=== PATIENT | female | born 1940 | race Caucasian/White ===

== ENCOUNTER 2024-07-21 20:11 | Inpatient (IN) | payer OTHER, MEDICAID ==
[~2024-07-21] VITALS: Ht 137.2 cm; Wt 87.3 kg
[2024-07-21 20:27] VITALS: BP_SYST 96; PULSE 72; RESP 16; TEMP 99.6; O2SAT 96
[2024-07-21 21:49] LABS: BASOPHILS # (AUTO) 0.1 K/uL (0.0-0.2); BASOPHILS % (AUTO) 0.5 % (0.0-2.0); EOSINOPHILS # (AUTO) 0.2 K/uL (0.0-0.4); EOSINOPHILS % (AUTO) 1.3 % (0.0-4.0); HEMATOCRIT 27.6 % (36-48); HEMOGLOBIN 8.8 g/dL (12.0-16.0); LYMPHOCYTES # (AUTO) 0.8 K/uL (1.0-5.5); LYMPHOCYTES % (AUTO) 4.4 % (20.5-51.5); MEAN CORPUSCULAR HEMOGLOBIN 28 pg (27-31); MEAN CORPUSCULAR HGB CONC 32 % (32-36); MEAN CORPUSCULAR VOLUME 88 fL (79.0-98.0); MONOCYTES # (AUTO) 1.2 K/uL (0.0-1.0); NEUTROPHILS # (AUTO) 15.3 K/uL (1.8-7.7); NEUTROPHILS % (AUTO) 86.8 % (40.0-70.0); PLATELET COUNT (AUTO) 201 K/uL (130-430); RED BLOOD CELL COUNT(AUTO) 3.15 MIL/uL (4.2-6.2); RED CELL DISTRIBUTION WIDTH 17.6 % (9.0-15.0); WHITE BLOOD COUNT (AUTO) 17.6 K/uL (4.8-10.8)
[2024-07-21 21:55] LABS: ALANINE AMINOTRANSFERASE 7 U/L (12-78); ALBUMIN 1.6 g/dL (3.4-4.8); ANION GAP 7 (5-15); ASPARTATE AMINOTRANSFERASE 18 U/L (10-37); BILIRUBIN,DIRECT 0.2 mg/dL (0.0-0.3); CALCIUM 8.2 mg/dL (8.4-11.0); CARBON DIOXIDE 32 mmol/L (23-29); CHLORIDE 108 mmol/L (98-107); CREATININE 0.78 mg/dL (0.55-1.30); GLUCOSE 126 mg/dL (74-106); SODIUM SERUM 147 mmol/L (136-145); TOTAL BILIRUBIN 0.5 mg/dL (0.0-1.0); TOTAL PROTEIN, SERUM 6.6 g/dL (6.4-8.3); UREA NITROGEN, BLOOD 15 mg/dL (8-21)
[2024-07-21 22:06] LABS: POTASSIUM 2.7 mmol/L (3.5-5.1)
[2024-07-21 22:18] LABS: INR 1.2 (0.8-1.2); PROTHROMBIN TIME 13.2 SECS (9.5-12.5)
[2024-07-21 23:49] LABS: BILIRUBIN,URINE NEGATIVE (NEGATIVE); BLOOD, URINE 2+ (NEGATIVE); CLARITY/URINE CLEAR (CLEAR); COLOR,URINE YELLOW (YELLOW); GLUCOSE,URINE NEGATIVE (NEGATIVE); KETONES,URINE NEGATIVE (NEGATIVE); LEUKOCYTE ESTERASE ,URINE 1+ (NEGATIVE); NITRITE, URINE NEGATIVE (NEGATIVE); PROTEIN URINE 3+ (NEGATIVE); UROBILINOGEN,URINE 0.2 (0.2-1.0)
[2024-07-22] VITALS (17 sets, daily range): BP systolic 93–134; PULSE 66–116; RESP 16–21; TEMP 98.5–101.2; O2SAT 91–98
[2024-07-22] MEDS ORDERED: MEROPENEM 500 MG VIAL IV ONE (00:07)
[2024-07-22] MEDS: KCL 20 mEq in 100 mL (PREMIX) 100 ML IV ONE (00:14)
[2024-07-22] MEDS: MEROPENEM 500 MG in NS 50 ML IV ONE (00:21)
[2024-07-22 00:22] LABS: BACTERIA,URINE MANY /HPF (None Seen); WBC,URINE >100 /HPF (0-3)
[2024-07-22 01:03] LABS: BILIRUBIN,URINE NEGATIVE (NEGATIVE); BLOOD, URINE 2+ (NEGATIVE); CLARITY/URINE CLEAR (CLEAR); COLOR,URINE YELLOW (YELLOW); GLUCOSE,URINE NEGATIVE (NEGATIVE); KETONES,URINE TRACE (NEGATIVE); LEUKOCYTE ESTERASE ,URINE 2+ (NEGATIVE); NITRITE, URINE NEGATIVE (NEGATIVE); PROTEIN URINE 2+ (NEGATIVE); UROBILINOGEN,URINE 0.2 (0.2-1.0)
[2024-07-22 01:36] LABS: BACTERIA,URINE MANY /HPF (None Seen); RBC,URINE >100 /HPF (0-3); WBC,URINE >100 /HPF (0-3)
[2024-07-22] MEDS ORDERED: VANCOMYCIN HCL 1000 MG/VIAL IV ONE (02:17)
[2024-07-22] MEDS: VANCOMYCIN HCL 1,000 MG in NS 250 ML IV ONE (02:25)
[2024-07-22] MEDS ORDERED: VANC250C11 IVPB (04:44)
[2024-07-22] MEDS ORDERED: DOCU-156 GT (04:44)
[2024-07-22] MEDS ORDERED: CHLO473M5 PO (04:44)
[2024-07-22] MEDS ORDERED: MAGN400T10 GT (04:44)
[2024-07-22] MEDS ORDERED: VANC125C10 GT (04:44)
[2024-07-22] MEDS ORDERED: FURO40SO5 GT (04:44)
[2024-07-22] MEDS ORDERED: insulin regular SUBQ (04:44)
[2024-07-22] MEDS ORDERED: METO-290 GT (04:44)
[2024-07-22] MEDS ORDERED: FAMO40TA7 PO (04:44)
[2024-07-22] MEDS ORDERED: AMPI3VIA27 IVPB (04:44)
[2024-07-22] MEDS ORDERED: LEVE1000 GT (04:44)
[2024-07-22] MEDS ORDERED: MIDO10TA GT (04:44)
[2024-07-22] MEDS ORDERED: CEFI1VIA IV (04:44)
[2024-07-22] MEDS ORDERED: METO25TA6 PO (04:44)
[2024-07-22] MEDS ORDERED: lactobacillus GT (04:44)
[2024-07-22] MEDS ORDERED: ACET325T53 PO (04:44)
[2024-07-22] MEDS ORDERED: DILT30TA35 GT (04:44)
[2024-07-22] MEDS ORDERED: CLON2TAB11 GT (04:44)
[2024-07-22] MEDS ORDERED: ACETYLCYSTEINE 20% INH (04:44)
[2024-07-22] MEDS ORDERED: AMIO200T66 GT (04:44)
[2024-07-22] MEDS ORDERED: ATOR-449 GT (04:44)
[2024-07-22] MEDS ORDERED: ONDA-8 TL (04:48)
[2024-07-22] MEDS ORDERED: xopenex INH (04:48)
[2024-07-22] MEDS ORDERED: ONDANSETRON 4 MG ODT TAB TL PRN (08:15)
[2024-07-22] MEDS ORDERED: DILTIAZEM HCL 30 MG TABLET GT PRN (08:15)
[2024-07-22] MEDS: AMIODARONE HCL 200 MG TABLET GT SCH (13:03)
[2024-07-22] MEDS: METOCLOPRAMIDE HCL 10 MG TABLET GT SCH (13:04)
[2024-07-22] MEDS: FAMOTIDINE 20 MG TABLET GT SCH (13:04)
[2024-07-22] MEDS: MIDODRINE HCL 5 MG TABLET (PROAMATINE) GT SCH (13:04)
[2024-07-22] MEDS: MAGNESIUM OXIDE 400 MG TABLET GT SCH (13:04)
[2024-07-22] MEDS: LevETIRAcetam 500 MG/5 ML UDC ORAL LIQUID GT SCH (13:06)
[2024-07-22] MEDS: CHLORHEXIDINE GLUC 0.12% 15 ML MOUTHWASH UDC MM SCH (13:06)
[2024-07-22 13:10] LABS: ANION GAP 5 (5-15); CALCIUM 7.9 mg/dL (8.4-11.0); CARBON DIOXIDE 30 mmol/L (23-29); CHLORIDE 111 mmol/L (98-107); CREATININE 0.68 mg/dL (0.55-1.30); GLUCOSE 91 mg/dL (74-106); SODIUM SERUM 146 mmol/L (136-145); UREA NITROGEN, BLOOD 14 mg/dL (8-21)
[2024-07-22] MEDS: METOPROLOL TARTRATE 25 MG TABLET GT SCH (13:11)
[2024-07-22 13:45] LABS: BASOPHILS # (AUTO) 0.1 K/uL (0.0-0.2); BASOPHILS % (AUTO) 1.1 % (0.0-2.0); EOSINOPHILS # (AUTO) 0.3 K/uL (0.0-0.4); EOSINOPHILS % (AUTO) 2.1 % (0.0-4.0); HEMATOCRIT 27.5 % (36-48); HEMOGLOBIN 8.8 g/dL (12.0-16.0); LYMPHOCYTES % (AUTO) 7.1 % (20.5-51.5); MEAN CORPUSCULAR HEMOGLOBIN 28 pg (27-31); MEAN CORPUSCULAR HGB CONC 32 % (32-36); MEAN CORPUSCULAR VOLUME 86 fL (79.0-98.0); MONOCYTES # (AUTO) 1.2 K/uL (0.0-1.0); MONOCYTES % (AUTO) 8.5 % (1.7-9.3); NEUTROPHILS % (AUTO) 81.2 % (40.0-70.0); PLATELET COUNT (AUTO) 245 K/uL (130-430); RED BLOOD CELL COUNT(AUTO) 3.19 MIL/uL (4.2-6.2); RED CELL DISTRIBUTION WIDTH 17.5 % (9.0-15.0); WHITE BLOOD COUNT (AUTO) 13.6 K/uL (4.8-10.8)
[2024-07-22] MEDS: ACETAMINOPHEN 650 MG/20.3 ML UDC GT PRN (16:57)
[2024-07-22] MEDS: POTASSIUM CHLORIDE 20 MEQ/PKT PACKET PO ONE (16:58)
[2024-07-22] MEDS: IPRATROPIUM/ALBUTEROL SULFATE 3 ML AMPUL.NEB (DUONEB) INH SCH (19:44)
[2024-07-22] MEDS: ATORVASTATIN 10 MG TABLET GT SCH (21:30)
[2024-07-22] MEDS: clonazePAM 0.5 MG TABLET GT SCH (21:30)
[2024-07-22] MEDS: MEROPENEM 500 MG in NS 50 ML IV SCH (21:34)
[2024-07-23] VITALS (16 sets, daily range): BP systolic 86–118; PULSE 62–76; RESP 16–20; TEMP 97.7–99.3; O2SAT 92–98
[2024-07-23 05:00] LABS: BASOPHILS # (AUTO) 0.2 K/uL (0.0-0.2); BASOPHILS % (AUTO) 1.3 % (0.0-2.0); EOSINOPHILS # (AUTO) 0.3 K/uL (0.0-0.4); EOSINOPHILS % (AUTO) 2.3 % (0.0-4.0); HEMATOCRIT 24.7 % (36-48); HEMOGLOBIN 8.2 g/dL (12.0-16.0); LYMPHOCYTES # (AUTO) 1.3 K/uL (1.0-5.5); LYMPHOCYTES % (AUTO) 8.6 % (20.5-51.5); MEAN CORPUSCULAR HEMOGLOBIN 29 pg (27-31); MEAN CORPUSCULAR HGB CONC 33 % (32-36); MEAN CORPUSCULAR VOLUME 87 fL (79.0-98.0); MONOCYTES # (AUTO) 1.6 K/uL (0.0-1.0); MONOCYTES % (AUTO) 10.9 % (1.7-9.3); NEUTROPHILS # (AUTO) 11.2 K/uL (1.8-7.7); NEUTROPHILS % (AUTO) 76.9 % (40.0-70.0); PLATELET COUNT (AUTO) 236 K/uL (130-430); RED BLOOD CELL COUNT(AUTO) 2.83 MIL/uL (4.2-6.2); RED CELL DISTRIBUTION WIDTH 17.6 % (9.0-15.0); WHITE BLOOD COUNT (AUTO) 14.6 K/uL (4.8-10.8)
[2024-07-23 05:28] LABS: ERYTHROCYTE SEDIMENTATION RATE 35 MM/HR (0-20)
[2024-07-23 05:30] LABS: ALANINE AMINOTRANSFERASE 7 U/L (12-78); ALBUMIN 1.5 g/dL (3.4-4.8); ANION GAP 4 (5-15); ASPARTATE AMINOTRANSFERASE 22 U/L (10-37); CALCIUM 7.7 mg/dL (8.4-11.0); CARBON DIOXIDE 32 mmol/L (23-29); CHLORIDE 111 mmol/L (98-107); CREATININE 0.98 mg/dL (0.55-1.30); GLUCOSE 125 mg/dL (74-106); POTASSIUM 3.5 mmol/L (3.5-5.1); SODIUM SERUM 147 mmol/L (136-145); TOTAL BILIRUBIN 0.4 mg/dL (0.0-1.0); TOTAL PROTEIN, SERUM 6.2 g/dL (6.4-8.3); UREA NITROGEN, BLOOD 19 mg/dL (8-21)
[2024-07-24] VITALS (17 sets, daily range): BP systolic 121–129; PULSE 55–81; RESP 16–17; TEMP 96.8–98.8; O2SAT 90–99
[2024-07-24 05:59] LABS: BASOPHILS # (AUTO) 0.1 K/uL (0.0-0.2); BASOPHILS % (AUTO) 0.9 % (0.0-2.0); EOSINOPHILS # (AUTO) 0.4 K/uL (0.0-0.4); EOSINOPHILS % (AUTO) 2.6 % (0.0-4.0); HEMATOCRIT 26.2 % (36-48); HEMOGLOBIN 8.3 g/dL (12.0-16.0); LYMPHOCYTES # (AUTO) 1.1 K/uL (1.0-5.5); LYMPHOCYTES % (AUTO) 8.1 % (20.5-51.5); MEAN CORPUSCULAR HEMOGLOBIN 28 pg (27-31); MEAN CORPUSCULAR HGB CONC 32 % (32-36); MEAN CORPUSCULAR VOLUME 88 fL (79.0-98.0); MONOCYTES # (AUTO) 1.4 K/uL (0.0-1.0); MONOCYTES % (AUTO) 10.7 % (1.7-9.3); NEUTROPHILS # (AUTO) 10.5 K/uL (1.8-7.7); NEUTROPHILS % (AUTO) 77.7 % (40.0-70.0); PLATELET COUNT (AUTO) 218 K/uL (130-430); RED BLOOD CELL COUNT(AUTO) 2.99 MIL/uL (4.2-6.2); RED CELL DISTRIBUTION WIDTH 17.6 % (9.0-15.0); WHITE BLOOD COUNT (AUTO) 13.5 K/uL (4.8-10.8)
[2024-07-24 06:12] LABS: ANION GAP 6 (5-15); CALCIUM 7.5 mg/dL (8.4-11.0); CARBON DIOXIDE 28 mmol/L (23-29); CHLORIDE 111 mmol/L (98-107); CREATININE 1.14 mg/dL (0.55-1.30); GLUCOSE 121 mg/dL (74-106); POTASSIUM 3.3 mmol/L (3.5-5.1); SODIUM SERUM 145 mmol/L (136-145); UREA NITROGEN, BLOOD 23 mg/dL (8-21)
[2024-07-24 06:14] LABS: ERYTHROCYTE SEDIMENTATION RATE 43 MM/HR (0-20)
[2024-07-24] MEDS: BALSAM PERU/CASTOR OIL 56.7 GM OINT...G. TP SCH (09:00)
[2024-07-24] MEDS: POTASSIUM CHLORIDE 20 MEQ/PKT PACKET GT ONE (10:56)
[2024-07-24] MEDS: CALCIUM GLUC 2 GM/100ML-NACL 100 ML IV ONE (10:57)
[2024-07-24] MEDS: DOXYCYCLINE HYCLATE 100 MG in D5W 100 ML IV SCH (21:37)
[2024-07-25] VITALS (18 sets, daily range): BP systolic 111–122; PULSE 52–102; RESP 20; TEMP 97.4–97.8; O2SAT 92–100
[2024-07-25 06:29] LABS: ERYTHROCYTE SEDIMENTATION RATE 50 MM/HR (0-20)
[2024-07-25 06:35] LABS: ALANINE AMINOTRANSFERASE 6 U/L (12-78); ALBUMIN 1.4 g/dL (3.4-4.8); ANION GAP 4 (5-15); ASPARTATE AMINOTRANSFERASE 19 U/L (10-37); CALCIUM 7.9 mg/dL (8.4-11.0); CARBON DIOXIDE 29 mmol/L (23-29); CHLORIDE 112 mmol/L (98-107); GLUCOSE 108 mg/dL (74-106); POTASSIUM 3.8 mmol/L (3.5-5.1); SODIUM SERUM 145 mmol/L (136-145); TOTAL BILIRUBIN 0.6 mg/dL (0.0-1.0); TOTAL PROTEIN, SERUM 6.1 g/dL (6.4-8.3); UREA NITROGEN, BLOOD 25 mg/dL (8-21)
[2024-07-25 06:39] LABS: BASOPHILS # (AUTO) 0.1 K/uL (0.0-0.2); BASOPHILS % (AUTO) 1.1 % (0.0-2.0); EOSINOPHILS # (AUTO) 0.4 K/uL (0.0-0.4); EOSINOPHILS % (AUTO) 2.9 % (0.0-4.0); HEMATOCRIT 27.1 % (36-48); HEMOGLOBIN 8.5 g/dL (12.0-16.0); LYMPHOCYTES # (AUTO) 1.3 K/uL (1.0-5.5); LYMPHOCYTES % (AUTO) 11.1 % (20.5-51.5); MEAN CORPUSCULAR HEMOGLOBIN 28 pg (27-31); MEAN CORPUSCULAR HGB CONC 31 % (32-36); MEAN CORPUSCULAR VOLUME 89 fL (79.0-98.0); MONOCYTES # (AUTO) 1.2 K/uL (0.0-1.0); MONOCYTES % (AUTO) 10.3 % (1.7-9.3); NEUTROPHILS % (AUTO) 74.6 % (40.0-70.0); PLATELET COUNT (AUTO) 225 K/uL (130-430); RED BLOOD CELL COUNT(AUTO) 3.04 MIL/uL (4.2-6.2); RED CELL DISTRIBUTION WIDTH 18.6 % (9.0-15.0)
[2024-07-25] MEDS: CALCIUM GLUC 2 GM/100ML-NACL 100 ML IV ONE (11:19)
[2024-07-26] VITALS (15 sets, daily range): BP systolic 106–114; PULSE 53–65; RESP 20–24; TEMP 97.3–99.7; O2SAT 98–100
[2024-07-26 06:40] LABS: ANION GAP 6 (5-15); CALCIUM 7.9 mg/dL (8.4-11.0); CARBON DIOXIDE 27 mmol/L (23-29); CHLORIDE 110 mmol/L (98-107); CREATININE 0.89 mg/dL (0.55-1.30); GLUCOSE 110 mg/dL (74-106); POTASSIUM 4.3 mmol/L (3.5-5.1); SODIUM SERUM 143 mmol/L (136-145); UREA NITROGEN, BLOOD 28 mg/dL (8-21)
[2024-07-26 06:49] LABS: BASOPHILS # (AUTO) 0.1 K/uL (0.0-0.2); BASOPHILS % (AUTO) 0.7 % (0.0-2.0); EOSINOPHILS # (AUTO) 0.5 K/uL (0.0-0.4); EOSINOPHILS % (AUTO) 3.8 % (0.0-4.0); HEMATOCRIT 26.7 % (36-48); HEMOGLOBIN 8.2 g/dL (12.0-16.0); LYMPHOCYTES % (AUTO) 7.1 % (20.5-51.5); MEAN CORPUSCULAR HEMOGLOBIN 28 pg (27-31); MEAN CORPUSCULAR HGB CONC 31 % (32-36); MEAN CORPUSCULAR VOLUME 91 fL (79.0-98.0); MONOCYTES # (AUTO) 1.7 K/uL (0.0-1.0); MONOCYTES % (AUTO) 12.4 % (1.7-9.3); NEUTROPHILS # (AUTO) 10.3 K/uL (1.8-7.7); PLATELET COUNT (AUTO) 230 K/uL (130-430); RED BLOOD CELL COUNT(AUTO) 2.95 MIL/uL (4.2-6.2); RED CELL DISTRIBUTION WIDTH 18.5 % (9.0-15.0); WHITE BLOOD COUNT (AUTO) 13.6 K/uL (4.8-10.8)
[2024-07-26 08:03] LABS: ERYTHROCYTE SEDIMENTATION RATE 48 MM/HR (0-20)
[2024-07-26] MEDS ORDERED: MERO500V23 IV (10:33)
[2024-07-26] MEDS ORDERED: DOXY-244 GT (10:33)
== END 2024-07-26 20:20 | DRG 870 ==
LOC: SED 20:11 → STU 07-22 03:11
PROVIDERS: ADMIT Preventive Medicine Preventive Medicine/Occupational Environmental Medicine; ATTEND Preventive Medicine Preventive Medicine/Occupational Environmental Medicine
PROC: 5A1955Z Respiratory Ventilation, Greater than 96 Consecutive Hours (ICD-10-PCS; principal; 2024-07-22)
DX: A41.9 Sepsis, unspecified organism (principal); E43 Unspecified severe protein-calorie malnutrition; J15.69 Pneumonia due to other Gram-negative bacteria; J15.61 Pneumonia due to Acinetobacter baumannii; J44.0 Chronic obstructive pulmonary disease with (acute) lower respiratory infection; J96.11 Chronic respiratory failure with hypoxia; E87.0 Hyperosmolality and hypernatremia; J96.12 Chronic respiratory failure with hypercapnia; Z16.24 Resistance to multiple antibiotics; I47.20 Ventricular tachycardia, unspecified; Z68.42 Body mass index [BMI] 45.0-49.9, adult; B37.49 Other urogenital candidiasis; L89.529 Pressure ulcer of left ankle, unspecified stage; I11.0 Hypertensive heart disease with heart failure; I50.9 Heart failure, unspecified; I25.10 Atherosclerotic heart disease of native coronary artery without angina pectoris; G40.909 Epilepsy, unspecified, not intractable, without status epilepticus; I48.0 Paroxysmal atrial fibrillation; R13.10 Dysphagia, unspecified; D64.9 Anemia, unspecified; E11.65 Type 2 diabetes mellitus with hyperglycemia; E83.52 Hypercalcemia; I49.3 Ventricular premature depolarization; Z93.0 Tracheostomy status
CPT/HCPCS: 36415; 71045; 80048; 80053; 80076; 81000; 81001; 81015; 83605; 84484; 85025; 85610; 85651; 85730; 87040; 87070; 87081; 87086; 87186; 87205; 93005; 93306; 94002; 94003; 94070; 94640; 94664; 94760; 99285; G0378; J2185; J3370; J3480; J3490; J7060; J8597